=== PATIENT | female | born 1990 | race Caucasian/White ===

== ENCOUNTER 2018-02-16 08:11 | Emergency (ER) | payer BC ==
[~2018-02-16] VITALS: Ht 165.1 cm; Wt 88.0 kg
[2018-02-16 08:24] VITALS: BP 109/68; Ht 165.1 cm; Wt 88.0 kg
== END 2018-02-16 09:32 | disposition home or self-care (01) ==
LOC: ED 08:11
DX: O26.892 Other specified pregnancy related conditions, second trimester (principal); R10.2 Pelvic and perineal pain; Z3A.21 21 weeks gestation of pregnancy